=== PATIENT | female | born 1970 | race African-American/Black ===

== ENCOUNTER 2017-12-30 13:16 | Emergency (ER) | payer MEDICAID, OTHER ==
[~2017-12-30] VITALS: Ht 172.7 cm; Wt 147.0 kg
[2017-12-30] MEDS ORDERED: HYDR-3511 PO (13:37)
[2017-12-30 16:15] VITALS: BP 125/56
== END 2017-12-30 17:53 | disposition left against medical advice (07) ==
LOC: ER 13:50
DX: Z53.21 Procedure and treatment not carried out due to patient leaving prior to being seen by health care provider (principal)

== ENCOUNTER 2018-03-01 11:28 | Emergency (ER) | payer OTHER ==
[~2018-03-01] VITALS: Ht 172.7 cm; Wt 150.0 kg
[~2018-03-01 11:28] MED LIST: HYDR-3511 PO
[2018-03-01 13:13] LABS: EOSINOPHILS % 1.9 % (0.0-5.0); HEMATOCRIT. 38.8 % (36.0-48.0); HEMOGLOBIN. 13.1 g/dL (12.0-16.0); LYMPHOCYTES % 43.4 % (20.0-50.0); MEAN CORPUSCULAR HEMOGLOBIN 28.7 pg (28.0-32.0); MEAN CORPUSCULAR VOLUME 85.2 fL (81.0-99.0); MEAN PLATELET VOLUME 8.5 fl (7.4-10.4); MONOCYTES % 2.2 % (2.0-8.0); NEUTROPHILS % 50.5 % (40.0-76.0); PLATELET 377 x1000/uL (130-400); RED BLOOD CELL COUNT 4.56 mill/uL (4.2-5.4); RED CELL DISTRIBUTION WIDTH 15.5 % (11.6-14.6)
[2018-03-01 13:30] LABS: CHLORIDE 105 mEq/L (98-107)
[2018-03-01] MEDS ORDERED: ONDANSETRON 4MG ODT PO ONE (13:30)
[2018-03-01 14:02] LABS: HCG SCREEN NEGATIVE
[2018-03-01 15:11] LABS: CLARITY URINE CLOUDY (CLEAR); COLOR URINE DARK YELLOW (YELLOW); KETONES URINE TRACE (NEGATIVE); LEUKOCYTE ESTERASE URINE 1+ (NEGATIVE); NITRITE URINE NEGATIVE (NEGATIVE); OCCULT BLOOD URINE NEGATIVE (NEGATIVE); PROTEIN URINE NEGATIVE (NEGATIVE); SPECIFIC GRAVITY URINE 1.036 (1.005-1.030)
[2018-03-01 15:51] VITALS: BP 152/80
== END 2018-03-01 16:37 | disposition home or self-care (01) ==
LOC: ER 13:22
DX: N39.0 Urinary tract infection, site not specified (principal); I10 Essential (primary) hypertension; F32.9 Major depressive disorder, single episode, unspecified; F17.200 Nicotine dependence, unspecified, uncomplicated; J45.909 Unspecified asthma, uncomplicated; E66.9 Obesity, unspecified; Z68.43 Body mass index [BMI] 50.0-59.9, adult; Z88.0 Allergy status to penicillin; Z91.040 Latex allergy status; Z91.018 Allergy to other foods
CPT/HCPCS: 36415; 74176; 80053; 81003; 83690; 84703; 85025; 99285; Q0162

== ENCOUNTER 2019-01-31 01:29 | Emergency (ER) | payer MEDICAID, OTHER ==
[~2019-01-31] VITALS: Ht 175.3 cm; Wt 150.0 kg
[2019-01-31] MEDS ORDERED: KETOROLAC 60MG/2ML VIAL IM ONE (05:00)
[2019-01-31] MEDS ORDERED: HYDROCODONE/ACETAMINOPHEN 10/325MG TABLET PO ONE (05:00)
[2019-01-31 07:06] VITALS: BP 152/85
== END 2019-01-31 07:08 | disposition home or self-care (01) ==
LOC: ER 01:29
DX: M54.40 Lumbago with sciatica, unspecified side (principal); M25.552 Pain in left hip; F17.200 Nicotine dependence, unspecified, uncomplicated; J45.909 Unspecified asthma, uncomplicated; Z88.0 Allergy status to penicillin; Z91.018 Allergy to other foods; Z91.040 Latex allergy status
CPT/HCPCS: 96372; 99283; J1885

== ENCOUNTER 2019-06-16 11:02 | Emergency (ER) | payer MEDICAID, OTHER ==
[~2019-06-16] VITALS: Ht 175.3 cm; Wt 144.0 kg
[~2019-06-16 11:02] MED LIST changes: -HYDR-3511 PO; +HYDR-3512 PO
[2019-06-16] MEDS ORDERED: MORPHINE SULFATE 4 MG/ML CPJ (NOT FOR IM USE) IV STA (11:56)
[2019-06-16] MEDS ORDERED: SODIUM CHLORIDE 0.9% 1,000 ML IV ONE (11:56)
[2019-06-16] MEDS ORDERED: ONDANSETRON HCL 4MG/2ML INJ IV STA (11:56)
[2019-06-16 12:44] LABS: BASOPHILS % 1.3 % (0.0-2.0); EOSINOPHILS % 1.2 % (0.0-5.0); HEMATOCRIT. 39.7 % (36.0-48.0); HEMOGLOBIN. 13.3 g/dL (12.0-16.0); LYMPHOCYTES % 40.8 % (20.0-50.0); MEAN CORPUSCULAR HEMOGLOBIN 28.9 pg (28.0-32.0); MEAN CORPUSCULAR VOLUME 86.3 fL (81.0-99.0); MONOCYTES % 4.6 % (2.0-8.0); NEUTROPHILS % 52.1 % (40.0-76.0); PLATELET 355 x1000/uL (130-400); RED BLOOD CELL COUNT 4.59 mill/uL (4.2-5.4); RED CELL DISTRIBUTION WIDTH 15.3 % (11.6-14.6)
[2019-06-16 12:53] LABS: CHLORIDE 105 mEq/L (98-107)
[2019-06-16 12:57] LABS: HCG SCREEN NEGATIVE
[2019-06-16 14:04] LABS: CLARITY URINE CLOUDY (CLEAR); COLOR URINE YELLOW (YELLOW); KETONES URINE NEGATIVE (NEGATIVE); LEUKOCYTE ESTERASE URINE TRACE (NEGATIVE); NITRITE URINE NEGATIVE (NEGATIVE); OCCULT BLOOD URINE NEGATIVE (NEGATIVE); PH URINE 7.5 (4.5-8.0); PROTEIN URINE NEGATIVE (NEGATIVE); SPECIFIC GRAVITY URINE 1.019 (1.005-1.030)
[2019-06-16 15:45] VITALS: BP 128/78
== END 2019-06-16 16:00 | disposition home or self-care (01) ==
LOC: ER 11:02
DX: R10.13 Epigastric pain (principal); R10.12 Left upper quadrant pain; J45.909 Unspecified asthma, uncomplicated; Z88.0 Allergy status to penicillin; Z91.018 Allergy to other foods; Z91.040 Latex allergy status
CPT/HCPCS: 36415; 74176; 76705; 80053; 81003; 83690; 84703; 85025; 93005; 96361; 96374; 96375; 99284; J2270; J2405; J7030

== ENCOUNTER 2022-12-08 13:50 | Inpatient (IN) | payer MEDICAID ==
[~2022-12-08] VITALS: Ht 172.7 cm; Wt 171.5 kg
[2022-12-08] MEDS ORDERED: ALBUTEROL (0.083%) 2.5MG/3ML NEB HHN STA (17:21)
[2022-12-08] MEDS ORDERED: IPRATROPIUM BROMIDE (0.02%) 0.5MG/2.5ML NEB HHN STA (17:21)
[2022-12-08] MEDS ORDERED: METHYLPREDNISOLONE SOD SUCC 125 MG/2 ML VIAL IV STA (17:21)
[2022-12-08] MEDS ORDERED: LORAZEPAM 1MG TABLET PO ONE (17:30)
[2022-12-08 18:13] LABS: BASOPHILS % 0.8 % (0.0-2.0); EOSINOPHILS % 1.6 % (0.0-5.0); HEMATOCRIT. 39.5 % (36.0-48.0); HEMOGLOBIN. 12.9 g/dL (12.0-16.0); LYMPHOCYTES % 20.8 % (20.0-50.0); MEAN CORPUSCULAR HEMOGLOBIN 27.3 pg (28.0-32.0); MEAN CORPUSCULAR VOLUME 83.8 fL (81.0-99.0); MEAN PLATELET VOLUME 8.5 fl (7.4-10.4); MONOCYTES % 3.9 % (2.0-8.0); NEUTROPHILS % 72.9 % (40.0-76.0); PLATELET 383 x1000/uL (130-400); RED BLOOD CELL COUNT 4.72 mill/uL (4.2-5.4); RED CELL DISTRIBUTION WIDTH 15.9 % (11.6-14.6)
[2022-12-08 18:16] LABS: CHLORIDE 105 mEq/L (98-107)
[2022-12-09 01:00] VITALS: BP 117/63
[2022-12-09 04:00] VITALS: BP 141/74
[2022-12-09] MEDS ORDERED: ACETAMINOPHEN 325MG TABLET PO PRN (06:00)
[2022-12-09] MEDS ORDERED: IPRATROPIUM/ALBUTEROL 0.5-3(2.5)MG/3ML NEB HHN PRN (06:00)
[2022-12-09] MEDS ORDERED: IPRATROPIUM BROMIDE (0.02%) 0.5MG/2.5ML NEB HHN PRN (06:15)
[2022-12-09] MEDS ORDERED: ALBUTEROL (0.083%) 2.5MG/3ML NEB HHN PRN (06:15)
[2022-12-09] MEDS ORDERED: ALBUTEROL (0.083%) 2.5MG/3ML NEB HHN SCH (06:15)
[2022-12-09] MEDS ORDERED: IPRATROPIUM BROMIDE (0.02%) 0.5MG/2.5ML NEB HHN SCH (06:15)
[2022-12-09] MEDS: METHYLPREDNISOLONE SOD SUCC 40 MG/ML VIAL IV SCH ×3 (06:34→21:19)
[2022-12-09 08:00] VITALS: BP 145/72
[2022-12-09] MEDS ORDERED: IPRATROPIUM/ALBUTEROL 0.5-3(2.5)MG/3ML NEB HHN SCH (08:00)
[2022-12-09] MEDS: LEVOFLOXACIN 500MG TABLET PO SCH (09:17)
[2022-12-09] MEDS: ENOXAPARIN 40MG/0.4ML SYR SUBCUT SCH ×2 (09:18→21:19)
[2022-12-09] MEDS: IPRATROPIUM BROMIDE (0.02%) 0.5MG/2.5ML NEB HHN SCH ×4 (09:50→20:55)
[2022-12-09] MEDS: ALBUTEROL (0.083%) 2.5MG/3ML NEB HHN SCH ×4 (09:50→20:55)
[2022-12-09] MEDS: BUDESONIDE 0.5MG/2ML NEB HHN SCH ×2 (09:57→20:55)
[2022-12-09 12:00] VITALS: BP 142/65
[2022-12-09] MEDS ORDERED: HYDROCODONE/ACETAMINOPHEN 5/325MG TABLET PO NR (14:45)
[2022-12-09 16:00] VITALS: BP 141/63
[2022-12-09] MEDS ORDERED: NALOXONE HCL 0.4MG/ML VIAL IV PRN (18:15)
[2022-12-09 19:07] LABS: *AMPHETAMINES SCREEN URINE NEGATIVE (NEGATIVE); *BARBITURATES SCREEN URINE NEGATIVE (NEGATIVE); *BENZODIAZEPINES SCREEN URINE NEGATIVE (NEGATIVE); *COCAINE SCREEN URINE NEGATIVE (NEGATIVE); CANNABINOID URINE SCREEN NEGATIVE (NEGATIVE); METHADONE URINE SCREEN NEGATIVE (NEGATIVE); OPIATES URINE SCREEN PRESUMTIVE POSITIVE (NEGATIVE); PHENCYCLIDINE URINE SCREEN NEGATIVE (NEGATIVE)
[2022-12-09 20:00] VITALS: BP 114/59
[2022-12-09] MEDS: LORAZEPAM 0.5MG TABLET PO PRN (21:32)
[2022-12-10] VITALS: BP 142/59
[2022-12-10] MEDS: IPRATROPIUM BROMIDE (0.02%) 0.5MG/2.5ML NEB HHN SCH ×6 (00:51→20:47)
[2022-12-10] MEDS: ALBUTEROL (0.083%) 2.5MG/3ML NEB HHN SCH ×6 (00:51→20:46)
[2022-12-10 04:00] VITALS: BP 140/59
[2022-12-10] MEDS: METHYLPREDNISOLONE SOD SUCC 40 MG/ML VIAL IV SCH ×4 (05:05→21:24)
[2022-12-10 08:00] VITALS: BP 137/58
[2022-12-10] MEDS: BUDESONIDE 0.5MG/2ML NEB HHN SCH ×2 (09:17→20:47)
[2022-12-10] MEDS ORDERED: ALBU18HF2 IH (09:50)
[2022-12-10] MEDS ORDERED: P20 MT (09:50)
[2022-12-10] MEDS ORDERED: FLUT1DIS3 INH (09:50)
[2022-12-10] MEDS ORDERED: IPRA3AMP9 NEB (09:50)
[2022-12-10] MEDS: LEVOFLOXACIN 500MG TABLET PO SCH (10:02)
[2022-12-10] MEDS: ENOXAPARIN 40MG/0.4ML SYR SUBCUT SCH ×2 (10:02→21:15)
[2022-12-10 12:00] VITALS: BP 147/67
[2022-12-10 16:00] VITALS: BP_SYST 137; BP_SYST 97; BP_DIAS 58; BP_DIAS 64
[2022-12-10 20:00] VITALS: BP 106/50
[2022-12-11] VITALS: BP 116/60
[2022-12-11] MEDS: ALBUTEROL (0.083%) 2.5MG/3ML NEB HHN SCH ×3 (00:10→09:00)
[2022-12-11] MEDS: IPRATROPIUM BROMIDE (0.02%) 0.5MG/2.5ML NEB HHN SCH ×3 (00:10→09:00)
[2022-12-11 04:00] VITALS: BP 105/71
[2022-12-11] MEDS: METHYLPREDNISOLONE SOD SUCC 40 MG/ML VIAL IV SCH (05:07)
[2022-12-11 08:00] VITALS: BP 146/79
[2022-12-11] MEDS: BUDESONIDE 0.5MG/2ML NEB HHN SCH (09:00)
[2022-12-11] MEDS: LORAZEPAM 0.5MG TABLET PO PRN (09:29)
[2022-12-11] MEDS: ENOXAPARIN 40MG/0.4ML SYR SUBCUT SCH (09:30)
[2022-12-11] MEDS: LEVOFLOXACIN 500MG TABLET PO SCH (09:30)
[2022-12-11] MEDS ORDERED: LORA10CA MT (09:48)
[2022-12-11 10:24] VITALS: BP 146/79
[2022-12-11 10:56] VITALS: BP 146/79
== END 2022-12-11 13:32 | disposition home or self-care (01) | DRG 140 ==
LOC: ER 13:50 → MICUSO 22:03 → 7WST 12-09 02:12
PROVIDERS: ADMIT Internal Medicine; ATTEND Internal Medicine
DX: J44.1 Chronic obstructive pulmonary disease with (acute) exacerbation (principal); J96.00 Acute respiratory failure, unspecified whether with hypoxia or hypercapnia; F41.9 Anxiety disorder, unspecified; I10 Essential (primary) hypertension; F17.210 Nicotine dependence, cigarettes, uncomplicated; Z88.0 Allergy status to penicillin; Z20.822 Contact with and (suspected) exposure to COVID-19; Z91.040 Latex allergy status; Z88.8 Allergy status to other drugs, medicaments and biological substances
CPT/HCPCS: 36415; 71045; 80053; 80305; 83880; 84484; 85025; 87426; 93005; 94640; 97162; 99285; J1650; J2920; J2930; J7626

== ENCOUNTER 2023-04-27 19:57 | Inpatient (IN) | payer MEDICAID ==
[~2023-04-27] VITALS: Ht 175.3 cm; Wt 172.4 kg
[~2023-04-27 19:57] MED LIST changes: +ALBU18HF2 IH; +FLUT1DIS3 INH; +IPRA3AMP9 NEB; +LORA10CA MT; +P20 MT
[2023-04-27] MEDS ORDERED: HYDROCODONE/ACETAMINOPHEN 5/325MG TABLET PO ONE (23:00)
[2023-04-27] MEDS ORDERED: ASPIRIN 81MG TABLET PO ONE (23:30)
[2023-04-27 23:44] LABS: BASOPHILS % 0.2 % (0.0-2.0); EOSINOPHILS % 1.3 % (0.0-5.0); LYMPHOCYTES % 35.7 % (20.0-50.0); MEAN CORPUSCULAR HEMOGLOBIN 26.9 pg (28.0-32.0); MEAN CORPUSCULAR VOLUME 82.9 fL (81.0-99.0); MEAN PLATELET VOLUME 8.4 fl (7.4-10.4); MONOCYTES % 5.7 % (2.0-8.0); NEUTROPHILS % 57.1 % (40.0-76.0); PLATELET 422 x1000/uL (130-400); RED BLOOD CELL COUNT 4.47 mill/uL (4.2-5.4); RED CELL DISTRIBUTION WIDTH 16.5 % (11.6-14.6)
[2023-04-27 23:47] LABS: CHLORIDE 105 mEq/L (98-107)
[2023-04-28] MEDS ORDERED: ASPIRIN 81MG TABLET PO NR (04:15)
[2023-04-28] MEDS ORDERED: ONDANSETRON HCL 4MG/2ML INJ IV PRN (11:00)
[2023-04-28] MEDS ORDERED: ACETAMINOPHEN 325MG TABLET PO PRN (11:00)
[2023-04-28 11:26] VITALS: BP 138/73; PULSE 76; RESP 16; TEMP 97.9
[2023-04-28 11:59] VITALS: BP 138/73; PULSE 76; RESP 16; TEMP 97.9
[2023-04-28] MEDS: METOPROLOL TARTRATE 25MG TABLET PO SCH ×2 (13:41→20:58)
[2023-04-28 16:00] VITALS: BP 140/66; PULSE 75; RESP 20; TEMP 98
[2023-04-28] MEDS ORDERED: KETOROLAC 15MG/ML VIAL IV PRN (17:00)
[2023-04-28 20:00] VITALS: BP 127/68; PULSE 87; RESP 19; TEMP 97.7
[2023-04-28] MEDS ORDERED: ATORVASTATIN CALCIUM 20MG TABLET PO SCH (21:00)
[2023-04-29] VITALS: BP 92/52; PULSE 73; RESP 18; TEMP 97.5
[2023-04-29 04:00] VITALS: BP 113/50; PULSE 74; RESP 18; TEMP 97.9
[2023-04-29] MEDS ORDERED: LORAZEPAM 2MG/ML CPJ IV NR (05:45)
[2023-04-29 08:00] VITALS: BP 120/55; PULSE 66; RESP 20; TEMP 97.9
[2023-04-29] MEDS: METOPROLOL TARTRATE 25MG TABLET PO SCH (09:55)
[2023-04-29] MEDS ORDERED: FLUT1DIS3 INH (10:14)
[2023-04-29 12:00] VITALS: BP 103/57; PULSE 69; RESP 16; TEMP 98
[2023-04-29 16:00] VITALS: BP 141/68; PULSE 70; RESP 18; TEMP 97.8
[2023-04-29] MEDS ORDERED: SUMATRIPTAN SUCCINATE 6MG/0.5ML VIAL SUBCUT NR (16:30)
[2023-04-29 18:37] VITALS: BP 141/68; PULSE 70; TEMP 97.8; O2SAT 95
== END 2023-04-29 20:25 | disposition home health service (06) | DRG 203 ==
LOC: ER 19:57 → 7EST 04-28 02:32
PROVIDERS: ADMIT Internal Medicine; ATTEND Internal Medicine
DX: M94.0 Chondrocostal junction syndrome [Tietze] (principal); E44.1 Mild protein-calorie malnutrition; I10 Essential (primary) hypertension; Z68.43 Body mass index [BMI] 50.0-59.9, adult; J44.9 Chronic obstructive pulmonary disease, unspecified; F41.9 Anxiety disorder, unspecified; R20.0 Anesthesia of skin; M79.602 Pain in left arm; E78.5 Hyperlipidemia, unspecified; Z87.891 Personal history of nicotine dependence; Z88.0 Allergy status to penicillin; Z91.040 Latex allergy status; Z82.49 Family history of ischemic heart disease and other diseases of the circulatory system; Z82.3 Family history of stroke
CPT/HCPCS: 36415; 71045; 80053; 80061; 83880; 84484; 85025; 93005; 93306; 99285; J1885; J2060; J3030

== ENCOUNTER 2023-06-10 20:23 | Inpatient (IN) | payer MEDICAID ==
[~2023-06-10] VITALS: Ht 175.3 cm; Wt 182.3 kg
[~2023-06-10 20:23] MED LIST changes: -P20 MT
[2023-06-10 22:30] LABS: BASOPHILS % 0.9 % (0.0-2.0); EOSINOPHILS % 2.2 % (0.0-5.0); HEMOGLOBIN. 11.2 g/dL (12.0-16.0); MEAN CORPUSCULAR HGB CONC 31.9 g/dL (31.0-37.0); MEAN CORPUSCULAR VOLUME 84.4 fL (81.0-99.0); MEAN PLATELET VOLUME 8.4 fl (7.4-10.4); MONOCYTES % 5.7 % (2.0-8.0); NEUTROPHILS % 53.2 % (40.0-76.0); PLATELET 418 x1000/uL (130-400); RED BLOOD CELL COUNT 4.15 mill/uL (4.2-5.4); RED CELL DISTRIBUTION WIDTH 15.8 % (11.6-14.6); WHITE BLOOD COUNT 10.7 x1000/uL (4.5-11.0)
[2023-06-10 22:33] LABS: CHLORIDE 105 mEq/L (98-107); INDEX HEMOLYSI 1 (1-3); INDEX ICTERIC 1 (1-4); INDEX LIPEMIC 1 (1-3); POTASSIUM 4.3 mEq/L (3.5-5.1); SODIUM 139 mEq/L (136-145)
[2023-06-10 22:44] LABS: ALANINE AMINOTRANSFERASE 23 IU/L (13-61); ALBUMIN 3.3 g/dL (3.4-5.0); ASPARTATE AMINOTRANSFERASE 15 IU/L (15-37); BILIRUBIN TOTAL 0.2 mg/dL (0.1-1.0); CALCIUM 9.4 mg/dL (8.5-10.1); CARBON DIOXIDE 29 mEq/L (21-32); CREATININE 0.7 mg/dL (0.6-1.3); GLUCOSE 96 mg/dL (70-105); NT PRO B-TYPE NATRIURETIC PEP 45 pg/mL (5-125); PROTEIN TOTAL 7.5 g/dL (6.0-8.3); TROPONIN I HIGH SENSITIVITY 5 ng/L (<54); UREA NITROGEN BLOOD 8 mg/dL (7-21)
[2023-06-11] MEDS ORDERED: ONDANSETRON HCL 4MG/2ML INJ IV ONE
[2023-06-11] MEDS ORDERED: MORPHINE SULFATE 4 MG/ML CPJ (NOT FOR IM USE) IV ONE ×2 (01:45)
[2023-06-11] MEDS ORDERED: IOHEXOL-350 100 ML BOTTLE ONE (03:56)
[2023-06-11 09:02] LABS: CLARITY URINE CLEAR (CLEAR); COLOR URINE YELLOW (YELLOW)
[2023-06-11 09:04] LABS: GLUCOSE URINE NEGATIVE (NEGATIVE); KETONES URINE NEGATIVE (NEGATIVE); NITRITE URINE NEGATIVE (NEGATIVE); OCCULT BLOOD URINE NEGATIVE (NEGATIVE); PH URINE 5.5 (4.5-8.0); PROTEIN URINE NEGATIVE (NEGATIVE); SPECIFIC GRAVITY URINE 1.035 (1.005-1.030)
[2023-06-11 09:05] LABS: LEUKOCYTE ESTERASE URINE NEGATIVE (NEGATIVE); UROBILINOGEN URINE 0.2 E.U./dL (0.2-1.0)
[2023-06-11] MEDS ORDERED: MORPHINE SULFATE 2 MG/ML CPJ (NOT FOR IM USE) IV ONE (10:30)
[2023-06-11 15:30] VITALS: BP 111/56; PULSE 75; RESP 18; TEMP 98.1
[2023-06-11] MEDS ORDERED: ACETAMINOPHEN 325MG TABLET PO PRN (15:45)
[2023-06-11] MEDS ORDERED: ONDANSETRON HCL 4MG/2ML INJ IV PRN (15:45)
[2023-06-11] MEDS: KETOROLAC 30MG/ML VIAL IV PRN (17:45)
[2023-06-11 20:00] VITALS: BP 123/54; PULSE 76; RESP 18; TEMP 98.6
[2023-06-11] MEDS ORDERED: HYDROCODONE/ACETAMINOPHEN 5/325MG TABLET PO PRN (20:15)
[2023-06-11] MEDS: LOSARTAN 50 MG TABLET PO SCH (20:43)
[2023-06-11] MEDS: FLUOXETINE HCL 20MG CAPSULE PO SCH (20:44)
[2023-06-12] VITALS: BP 108/48; PULSE 62; RESP 17; TEMP 99.3
[2023-06-12 04:00] VITALS: BP 108/42; PULSE 61; RESP 18; TEMP 98
[2023-06-12 08:00] VITALS: BP 99/46; PULSE 66; RESP 18; TEMP 97.8
[2023-06-12] MEDS: FLUOXETINE HCL 20MG CAPSULE PO SCH (08:55)
[2023-06-12] MEDS: LOSARTAN 50 MG TABLET PO SCH (08:55)
[2023-06-12] MEDS: KETOROLAC 30MG/ML VIAL IV PRN (08:59)
[2023-06-12 12:00] VITALS: BP 124/51; PULSE 67; RESP 18; TEMP 97.5
[2023-06-12] MEDS ORDERED: FURO-152 MT (14:39)
[2023-06-12] MEDS ORDERED: FUROSEMIDE 20MG/2ML VIAL IVP SCH (14:45)
[2023-06-12] MEDS ORDERED: NALOXONE HCL 0.4MG/ML VIAL IV PRN (14:45)
[2023-06-12 15:01] VITALS: BP 124/51; PULSE 67; TEMP 97.5; O2SAT 97
== END 2023-06-12 16:45 | disposition home or self-care (01) | DRG 243 ==
LOC: ER 20:23 → 8WST 06-11 03:14 → EDBEDREQ 06-11 03:20 → EDBEDREQTM 06-11 03:20
PROVIDERS: ADMIT Internal Medicine; ATTEND Internal Medicine
DX: K21.9 Gastro-esophageal reflux disease without esophagitis (principal); E11.9 Type 2 diabetes mellitus without complications; I10 Essential (primary) hypertension; J44.9 Chronic obstructive pulmonary disease, unspecified; E66.01 Morbid (severe) obesity due to excess calories
CPT/HCPCS: 36415; 71045; 71275; 80053; 81003; 83880; 84484; 85025; 93005; 99285; J1885; J1940; J2270; J2405; Q9967